=== PATIENT | male | born 1975 | race Caucasian/White ===

== ENCOUNTER 2022-03-31 08:39 | Day surgery (SDC) | payer MEDICARE, SELFPAY ==
[2022-03-28 09:13] VITALS: BMI 31.7
--- NOTE | 2022-03-30 09:30 | HO.ANESPROP2 ---
Documented by User: Maureen Browning NP 03/30/22 09:31 HPI - Anesthesia Eval Consult details Narrative: 46yo M for Colonoscopy, Upper Endoscopy with Balloon Dilitation PMFSH Past Medical History Medical History HTN (hypertension) Hx of flexible sigmoidoscopy Surgical History Surgical History H/O colonoscopy History of esophagogastroduodenoscopy (EGD) History of testicular surgery Hx of eye surgery Hx of hernia repair Social History Social History (Updated 03/31/22 @ 10:53 by Julita Ortiz MD) Alcohol intake: current Patient Tobacco Use Status: Current everyday Tobacco user Tobacco use type: Cigarette Cigarettes Per Day: 5 Use of substances other than those prescribed or required for medical reasons: No Are you DNR?: No Advance Directives: No Advance Directives Information Provided: Yes Meds Allergies Allergy/AdvReac Type Severity Reaction Status Date / Time naproxen [From Aleve] Allergy Intermediate Unknown Verified 03/31/22 10:13 Home Medications Medication Instructions Recorded Confirmed Last Taken Type amlodipine 10 mg tablet 1 tab PO DAILY 03/24/22 03/31/22 03/31/22 History Exam Exam Date and Time: March 30, 2022 0930 Height,Weight and Vital Signs: Height 5 ft 8.5 in Weight 96.162 kg Assessment and Plan Assessment Anesthesia Assessment: Chart Reviewed Documented by User: Julita Ortiz MD 03/31/22 10:56 HPI - Anesthesia Eval Consult details Narrative: 46yo M for Colonoscopy, Upper Endoscopy with Balloon Dilatation PMFSH Active Problems Active Problems: Tested in past for JASON. Mild JASON. No CPAP prescribed Snores Past Medical History Medical History HTN (hypertension) Hx of flexible sigmoidoscopy Family History Family history of problems with anesthesia: No Surgical History Surgical History H/O colonoscopy History of esophagogastroduodenoscopy (EGD) History of testicular surgery Hx of eye surgery Hx of hernia repair History of Problems with Anesthesia: No Social History Social History (Updated 03/31/22 @ 10:53 by Julita Ortiz MD) Alcohol intake: current Patient Tobacco Use Status: Current everyday Tobacco user Tobacco use type: Cigarette Cigarettes Per Day: 5 Use of substances other than those prescribed or required for medical reasons: No Are you DNR?: No Advance Directives: No Advance Directives Information Provided: Yes Meds Allergies Allergy/AdvReac Type Severity Reaction Status Date / Time naproxen [From Aleve] Allergy Intermediate Unknown Verified 03/31/22 10:13 Home Medications Medication Instructions Recorded Confirmed Last Taken Type amlodipine 10 mg tablet 1 tab PO DAILY 03/24/22 03/31/22 03/31/22 History Exam Height,Weight and Vital Signs: Height 5 ft 8.5 in Weight 96.162 kg Vital Signs Temp Pulse Resp BP Pulse Ox 03/31/22 09:27 98.7 F 98 18 137/104 H 98 Airway Mallampati Class: II TM Dist: >3cm Neck ROM: Full Loose/Missing/Broken Teeth: Yes (Many broken, some missing) Heart: RRR Lungs: CTAB Assessment and Plan Assessment Anesthesia Assessment: Anesthesia Plan Discussed Final Anesthetic Review Family History of Problems with Anesthesia: No History of Problems with Anesthesia: No NPO: Yes ASA Class: II Final Preanesthetic Review: No Changes in Pt Med Stat, Meds/Allgs Chart Reviewed, Consent Obtained/Reviewed and Anes Risks/Benef Reviewed Patient Risk: Intermediate Procedure Risk: Low Assessment/Block/Sedation in SS: Assess/Block/Sedation-SS Anesthetic Plan Anesthetic Plan: MAC: Disposition: Standard PACU
[2022-03-31 09:13] VITALS: BMI 31.4
[2022-03-31 09:27] VITALS: BP 137/104; PULSE 98; RESP 18; TEMP 37.1; O2SAT 98
[2022-03-31] MEDS: Lactated Ringers 1,000 ML 50 ML IVCONT (10:26)
[2022-03-31 11:57] VITALS: BP 165/117; PULSE 100; RESP 16; TEMP 37.5; O2SAT 97
--- NOTE | 2022-03-31 12:00 | PM.OP ---
Brief Operative Note Date of Service: 03/31/22 Pre-op diagnosis: Dysphagia, Screening Post-op diagnosis: other (Esophagitis, Gastritis, Diverticulosis) Procedure: EGD with biopsies and Balloon dilation with 18 to 19mm balloon, Colonoscopy to the cecum and TI. Surgeon: Ankit Donato Anesthesia: MAC Was an Hair [employer] Beauty [employer] Manager used for this Procedure?: No Estimated blood loss (mL): 2.0 Pathology: other (A. Gastric antrum) Condition: stable Disposition: PACU
[2022-03-31 12:12] VITALS: BP 140/94; PULSE 95; RESP 18; TEMP 36.1; O2SAT 97
--- NOTE | 2022-03-31 22:05 | OP_ITS ---
SURGEON: Ankit Donato MD INDICATIONS: The patient presents for evaluation of intermittent dysphagia and reflux, change in bowel habits, family history of colon cancer, and colorectal cancer screening. Full consent was obtained from him for both procedures, including risks of bleeding and perforation. PREOPERATIVE DIAGNOSIS: POSTOPERATIVE DIAGNOSIS: PROCEDURE PERFORMED: Esophagogastroduodenoscopy with balloon dilation of gastroesophageal junction and biopsies, and colonoscopy to the cecum and terminal ileum. ESTIMATED BLOOD LOSS: COMPLICATIONS: ANESTHESIA: Monitored anesthesia care. ASSISTANTS: SPECIMENS: PREOPERATIVE DIAGNOSES: Gastroesophageal reflux, dysphagia, change in bowel habits, family history of colon cancer, and colorectal cancer screening. POSTOPERATIVE DIAGNOSES: Gastroesophageal reflux, dysphagia, change in bowel habits, family history of colon cancer, and colorectal cancer screening, esophagitis, mild esophageal ring, hiatal hernia, gastritis, diverticulosis, and internal hemorrhoids. DESCRIPTION OF PROCEDURE: The patient was placed in the left lateral decubitus position. The Olympus video gastroscope was passed in the posterior oropharynx and upper esophagus under direct vision. The scope was passed slowly to the distal esophagus. The gastroesophageal junction appeared at 36 cm. With insufflation of air, there did appear to be a mild distal esophageal ring, but this was certainly not obstructing. There was no mass. There was some evidence of erosive esophagitis with a linear erosion of 1 or 2 cm. There was no stricture. The scope easily entered into the stomach. There was a small hiatal hernia. The scope was advanced to the pylorus and the duodenum was cannulated to the descending portion. The duodenum including the bulb appeared normal without mass or ulceration. The scope was withdrawn back into the stomach. The gastric antrum had some changes of gastritis with some erythema and edema. There were no erosions nor ulceration. There was good peristalsis. Biopsies were obtained from the antrum. The scope was retroflexed visualizing the proximal stomach carefully, which appeared normal, without any sign of mass or ulceration. The scope was straightened and withdrawn back into the esophagus. I did use a [employer] incremental balloon to dilate the gastroesophageal junction and esophageal ring from 18 mm to 19 mm at the recommended pressure for 60 seconds each. Post dilation there was really no disruption of the ring nor heme. The esophageal mucosa proximal to this area appeared normal other than the single erosion. The scope was withdrawn from the patient. He was turned around for colonoscopy. The digital rectal exam revealed no abnormalities. The Olympus video pediatric colonoscope was entered into the rectum and advanced easily to the cecum. Once in the cecum, I did identify normal-appearing cecal pouch with appendiceal orifice and a normal-appearing ileocecal valve. The terminal ileum was cannulated and appeared normal. The scope was withdrawn back into the colon. The entire cecum and ileocecal valve appeared normal. The scope was slowly withdrawn assessing all mucosal surfaces carefully. Preparation was excellent. I did not visualize any sign of polyps, colitis, nor angiodysplasia. There was a mild amount of sigmoid diverticulosis. In the rectum, scope was retroflexed visualizing small internal hemorrhoids, but no other pathology. The rectal mucosa appeared normal. The scope was straightened and withdrawn from the patient. He tolerated both procedures well and was returned to recovery area in stable condition. IMPRESSION: 1. Erosive esophagitis. 2. Mild distal esophageal ring, status post balloon dilation. 3. Hiatal hernia. 4. Gastritis. 5. Diverticulosis. 6. Internal hemorrhoids. PLAN: The results of the biopsies will be checked. He will be sent home with a prescription to use omeprazole 40 mg daily. He has been advised to avoid alcohol, aspirin and NSAIDs. I would recommend a repeat colonoscopy in 5 years for further screening given the family history of colon cancer in a paternal grandfather and a paternal aunt. He was advised to see me in the Fall for a followup visit as well. This has been discussed with his father. MD DAISY John/JEANNIE / [id number] MTDD
== END 2022-03-31 12:35 | disposition home or self-care (01) ==
PROVIDERS: PCP Internal Medicine; Visit Provider Internal Medicine
PROC: 0DJD8ZZ Inspection of Lower Intestinal Tract, Via Natural or Artificial Opening Endoscopic (ICD-10-PCS; CPT 45378; principal; 2022-03-31 10:50)
PROC: (CPT 43249; 2022-03-31 10:50)
DX: Z12.11 Encounter for screening for malignant neoplasm of colon (principal); K57.30 Diverticulosis of large intestine without perforation or abscess without bleeding; K64.8 Other hemorrhoids; K22.2 Esophageal obstruction; R13.19 Other dysphagia; K21.9 Gastro-esophageal reflux disease without esophagitis; K22.10 Ulcer of esophagus without bleeding; K44.9 Diaphragmatic hernia without obstruction or gangrene; K29.50 Unspecified chronic gastritis without bleeding; I10 Essential (primary) hypertension; Z79.82 Long term (current) use of aspirin; Z88.8 Allergy status to other drugs, medicaments and biological substances; F17.210 Nicotine dependence, cigarettes, uncomplicated
CPT/HCPCS: 43249; 43239; G0121; 88305; 88342; C1726; J2250